=== PATIENT | female | born 1975 | race Caucasian/White ===

== ENCOUNTER 2017-01-15 22:08 | Emergency (ER) | payer BC ==
[2017-01-15 23:15] LABS: BASOPHILS 0.5 % (0.0-2.0); EOSINOPHILS 4.4 % (0-7); HEMATOCRIT 46.3 % (36.0-48.0); HEMOGLOBIN 15.7 g/dL (12-16); IMMATURE GRANULOCYTES 0.3 % (0-5); LYMPHOCYTES 35.9 % (15-50); MCH 31.2 pg (26.0-34.0); MCHC 33.9 g/dL (31.0-37.0); MEAN PLATELET VOLUME 9.7 fL (7.4-10.4); MONOCYTES 7.5 % (2-11); NEUTROPHILS 51.4 % (40-80); PLATELET COUNT 399 10x3/uL (130-400); RBC 5.03 10x6/uL (4.00-5.40); RDW 13.9 % (11.5-14.5); WBC 12.1 10x3/uL (4.8-10.8)
[2017-01-15 23:32] LABS: ALBUMIN 3.5 g/dL (3.4-5.0); ALKALINE PHOSPHATASE 65 U/L (46-116); ALT (SGPT) 28 U/L (10-68); CALC OSMOLALITY 282 mosm/kg (275-300); CALCIUM 8.9 mg/dL (8.5-10.1); CARBON DIOXIDE 28.8 mmol/L (21.0-32.0); CHLORIDE - SERUM 104 mmol/L (98-107); CKMB 0.1 U/L (0.0-3.6); CREATINE KINASE 78 UL (21-215); CREATININE - SERUM 1.1 mg/dL (0.6-1.3); GLUCOSE 115 mg/dL (74-106); POTASSIUM - SERUM 3.7 mmol/L (3.5-5.1); PROTEIN - SERUM 7.4 g/dL (6.4-8.2); SODIUM 142 mmol/L (136-145); TROPONIN-I < 0.017 ng/mL (0.000-0.060); UREA NITROGEN 10 mg/dL (7-18); eGFR NON AFRICAN AMERICAN 58 mL/min (90-120)
== END 2017-01-16 00:44 | disposition home or self-care (01) ==
LOC: D.ER 22:08
PROVIDERS: Emergency Medicine
DX: K21.9 Gastro-esophageal reflux disease without esophagitis (principal)

== ENCOUNTER → 2017-01-21 10:10 | Outpatient (CLI) | payer BC ==
--- NOTE | 2017-01-21 14:47 | NUR ---
Nutrition education for gastric sleeve: S: Pt reports she will go all day without eating and then gorge on food. Pt has a sweet tooth and craves sweets daily. Pt is not getting any exercise now but is planning on joining a gym soon. Pt does not drink soda or sugary drinks. Pts goal wt is ~165#. Pt reports having very good support from family and friends. O: 41 y/o female Ht: 5'7" Wt: 268# IBW: 135# +/-10% BMI: 42.0 PMH: PCOS, hypoglycemia, joint pain A/P: Reviewed pre/post op diet progression; reviewed post-op 5 phases of diet progression and reviewed sample menus for each phase; discussed liquids between meals only, 1/2 cup meal size, dumping syndrome, no straws, no carbonated beverages, daily supplements, daily protein drinks, pouch stretching, no alcohol, eating out, meal planning. Provided pt with printed diet information and RDN name and phone number. Pt with good understanding of information provided. Pt goals: 1. Goal wt: 165# 2. Shop in a regular store for clothes 3. Be able to walk up stairs without being out of breath and knees hurting. Pt with realistic wt goal. RDN feels pt is ready to make the necessary lifestyle changes to be successful with weight loss surgery. RDN will be available if needed. Thank you for the consult.
== END | disposition home or self-care (01) ==
LOC: D.FANS 10:10
DX: Z01.818 Encounter for other preprocedural examination (principal)

== ENCOUNTER → 2017-02-27 07:54 | Outpatient (CLI) | payer BC | END | disposition home or self-care (01) | LOC: D.RT 07:54 | DX: R06.09 Other forms of dyspnea (principal) ==

== ENCOUNTER → 2017-02-28 10:16 | Outpatient (CLI) | payer BC ==
[2017-02-28 10:57] LABS: BASOPHILS 0.5 % (0.0-2.0); EOSINOPHILS 3.6 % (0-7); HEMATOCRIT 43.1 % (36.0-48.0); HEMOGLOBIN 14.6 g/dL (12-16); IMMATURE GRANULOCYTES 0.4 % (0-5); LYMPHOCYTES 34.6 % (15-50); MCH 31.1 pg (26.0-34.0); MCHC 33.9 g/dL (31.0-37.0); MCV 91.9 fL (80.0-100.0); MEAN PLATELET VOLUME 9.4 fL (7.4-10.4); MONOCYTES 4.4 % (2-11); NEUTROPHILS 56.5 % (40-80); PLATELET COUNT 382 10x3/uL (130-400); RBC 4.69 10x6/uL (4.00-5.40); RDW 13.6 % (11.5-14.5); WBC 8.4 10x3/uL (4.8-10.8)
[2017-02-28 11:07] LABS: APTT 23.5 SECONDS (22.8-39.4); INR 0.9 (0.85-1.17)
[2017-02-28 11:15] LABS: HELICOBACTER PYLORI IGG NEGATIVE (NEGATIVE)
[2017-02-28 11:26] LABS: ALBUMIN 3.3 g/dL (3.4-5.0); ANION GAP 10.1 mmol/L (8-16); BILIRUBIN - DIRECT 0.06 mg/dL (0.00-0.30); BILIRUBIN - INDIRECT 0.18 mg/dL (0.00-1.00); BILIRUBIN - TOTAL 0.24 mg/dL (0.2-1.3); CARBON DIOXIDE 27.7 mmol/L (21.0-32.0); CREATININE - SERUM 1.1 mg/dL (0.6-1.3); LDL-HDL RATIO 1.6 ratio (1.5-3.5); POTASSIUM - SERUM 3.8 mmol/L (3.5-5.1); PROTEIN - SERUM 6.6 g/dL (6.4-8.2); THYROID STIMULATING HORMONE 2.21 uIU/mL (0.36-3.74)
[2017-03-01 09:12] LABS: FOLATE (FOLIC ACID) - SERUM 5.8 ng/mL (>3.0)
[2017-03-03 12:12] LABS: VITAMIN D 25 HYDROXY 17.7 ng/mL (30.0-100.0)
== END | disposition home or self-care (01) ==
LOC: D.LAB 10:16
PROVIDERS: Surgery
DX: Z00.00 Encounter for general adult medical examination without abnormal findings (principal)

== ENCOUNTER 2017-03-26 21:23 | Emergency (ER) | payer BC | END 2017-03-26 23:10 | disposition home or self-care (01) | LOC: D.ER 21:23 | DX: G43.909 Migraine, unspecified, not intractable, without status migrainosus (principal); J01.90 Acute sinusitis, unspecified; K21.9 Gastro-esophageal reflux disease without esophagitis; F17.200 Nicotine dependence, unspecified, uncomplicated ==

== ENCOUNTER 2018-07-31 20:33 | Emergency (ER) | payer BC ==
[~2018-07-31] VITALS: Ht 170.2 cm; Wt 109.1 kg
[2018-07-31 20:43] VITALS: Ht 170.2 cm; Wt 109.1 kg
[2018-07-31] MEDS ORDERED: ESTRACE2 MG PO (20:46)
[2018-07-31] MEDS ORDERED: ZOFRAN8 MG PO (20:46)
[2018-07-31] MEDS ORDERED: KLONOPIN0.5 MG PO (20:46)
[2018-07-31] MEDS ORDERED: CALAN SR240 MG PO (20:47)
[2018-07-31] MEDS ORDERED: ELAVIL25 MG PO (20:47)
[2018-07-31] MEDS ORDERED: MAGNESIUM OXID250 MG PO (20:47)
[2018-07-31] MEDS ORDERED: PROMETRIUM100 MG PO (20:49)
[2018-07-31 21:16] LABS: BASOPHILS 0.4 % (0-2); EOSINOPHILS 2.6 % (0-7); HEMATOCRIT 44.5 % (36.0-48.0); HEMOGLOBIN 15.9 g/dL (12-16); IMMATURE GRANULOCYTES 0.3 % (0-5); LYMPHOCYTES 18.6 % (15-50); MCHC 35.7 g/dL (31.0-37.0); MCV 89.5 fL (80.0-100.0); MEAN PLATELET VOLUME 9.5 fL (7.4-10.4); MONOCYTES 3.6 % (2-11); NEUTROPHILS 74.5 % (40-80); PLATELET COUNT 349 10x3/uL (130-400); RBC 4.97 10x6/uL (4.00-5.40); RDW 13.1 % (11.5-14.5); WBC 10.2 10x3/uL (4.8-10.8)
[2018-07-31 21:30] LABS: ALBUMIN 3.4 g/dL (3.4-5.0); ALKALINE PHOSPHATASE 75 U/L (46-116); ALT (SGPT) 25 U/L (10-68); BILIRUBIN - TOTAL 0.34 mg/dL (0.2-1.3); CALC OSMOLALITY 277 mosm/kg (275-300); CALCIUM 9.2 mg/dL (8.5-10.1); CARBON DIOXIDE 25.6 mmol/L (21.0-32.0); CHLORIDE - SERUM 105 mmol/L (98-107); CREATININE - SERUM 1.3 mg/dL (0.6-1.3); GLUCOSE 93 mg/dL (74-106); POTASSIUM - SERUM 3.8 mmol/L (3.5-5.1); PROTEIN - SERUM 7.3 g/dL (6.4-8.2); SODIUM 140 mmol/L (136-145); UREA NITROGEN 10 mg/dL (7-18); eGFR NON AFRICAN AMERICAN 47 mL/min (90-120)
[2018-07-31 21:34] LABS: CREATINE KINASE 51 UL (21-215); TROPONIN-I < 0.017 ng/mL (0.000-0.060)
[2018-07-31 21:48] LABS: APPEARANCE CLEAR (CLEAR); COLOR YELLOW (YELLOW)
[2018-07-31 21:49] LABS: BILIRUBIN NEGATIVE (NEGATIVE); GLUCOSE NEGATIVE (NEGATIVE); KETONE NEGATIVE (NEGATIVE); NITRITE NEGATIVE (NEGATIVE); PROTEIN NEGATIVE (NEGATIVE); UROBILINOGEN NORMAL (NORMAL)
[2018-07-31] MEDS ORDERED: PHENERGAN25 M1 PO (22:25)
[2018-07-31 23:12] VITALS: BP 140/84
== END 2018-07-31 23:11 | disposition home or self-care (01) ==
LOC: D.ER 20:33
PROVIDERS: Emergency Medicine
DX: R07.89 Other chest pain (principal); R35.0 Frequency of micturition; I10 Essential (primary) hypertension